=== PATIENT | female | born 1940 | race Hispanic/Latino ===

== ENCOUNTER 2018-02-22 09:33 | Emergency (ER) | payer MEDICARE ==
[2018-02-22 09:39] VITALS: BMI 26.3
[2018-02-22 10:03] VITALS: RESP 18; TEMP 98.4
--- NOTE | 2018-02-22 10:19 | ED PDOC ---
Arrival/HPI - General Chief Complaint: Trauma Time Seen by Provider: 02/22/18 09:41 Historian: Patient - History of Present Illness Narrative History of Present Illness (Text): 02/22/18 10:15 77-year-old female with a history of hypertension and multiple brain surgeries for meningiomas presents today with left upper lip laceration status post mechanical fall. Patient states [place] and tripped over the luggage falling forward landing on the luggage and hitting her face on the ground. Patient denies loss of consciousness. She denies dizziness or weakness. She denies chest pain or shortness of breath. She denies neck pain. She denies abdominal pain. Patient denies numbness weakness or tingling in the extremities. She denies any pain or limited range of motion to any of the extremities. Patient states her tetanus vaccine is up-to-date. Patient denies headache. Patient is only complaining of a burning sensation to the upper lip laceration. Patient states she fractured her right front tooth. No other complaints. Time/Duration: Prior to Arrival Symptom Onset: Sudden Past Medical History - Provider Review Nursing Documentation Reviewed: Yes - Travel History Have you recently traveled outside [place] w/in the past 3 mons?: No - Tetanus Immunization Tetanus Immunization: Up to Date - Cardiac Hx Hypertension: Yes - Psychiatric Hx Substance Use: No - Surgical History Other/Comment: brain sx for meningioma - Anesthesia Hx Anesthesia: Yes Hx Anesthesia Reactions: No Hx Malignant Hyperthermia: No Family/Social History - Physician Review Nursing Documentation Reviewed: Yes Family/Social History: Unknown Family HX Smoking Status: Never Smoked Hx Alcohol Use: No Hx Substance Use: No Allergies/Home Meds Allergies/Adverse Reactions: Allergies acebutolol [From Sectral] Allergy (Verified 02/22/18 09:40) ANAPHYLAXIS Sulfa (Sulfonamide Antibiotics) Allergy (Verified 02/22/18 09:40) ANAPHYLAXIS Review of Systems - Review of Systems Constitutional: absent: Fatigue, Fevers Eyes: Other (hx of exophthalmos to left eye. ). absent: Eye Pain ENT: absent: Sore Throat, Epistaxis, Sinus Congestion Respiratory: absent: SOB, Cough Cardiovascular: absent: Chest Pain, Palpitations Gastrointestinal: absent: Abdominal Pain, Constipation, Diarrhea, Nausea, Vomiting Musculoskeletal: absent: Arthralgias, Back Pain, Neck Pain Skin: Laceration Neurological: absent: Headache, Dizziness Psychiatric: absent: Anxiety, Depression Physical Exam Vital Signs Reviewed: Yes Vital Signs Temp Pulse Resp BP Pulse Ox 02/22/18 09:33 98.4 F 100 H 18 149/86 99 Temperature: Afebrile Blood Pressure: Normal Pulse: Tachycardic Respiratory Rate: Normal Appearance: Positive for: Well-Appearing, Non-Toxic, Comfortable Pain Distress: None Mental Status: Positive for: Alert and Oriented X 3 - Systems Exam Head: Present: Swelling, Laceration (there is a 1cm jagged horizontal laceration and a 0.5cm vertical laceration noted to the philtrum. 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 there is no periorbital/TMJ/ Maxilla tenderness. no step offs or crepitus) Conjunctiva: Present: Normal Ears: Present: Normal, NORMAL TM Mouth: Present: Moist Mucous Membranes, Normal Tounge, Other (there is a through and through T shaped laceration 2cm along the upper lip mucosa extending to the philtrum causing a 1cm laceration to the philtrum; there are 2 large dental fragments within the laceration. ). No: Drooling, Trismus, Normal Teeth (+ 7th and 8th partial dental fractures. ) Pharnyx: Present: Normal. No: ERYTHEMA, EXUDATE Nose (External): Present: Atraumatic Nose (Internal): Present: Normal Inspection. No: Septal Deviation, Septal Hematoma Neck: Present: Normal Range of Motion. No: MIDLINE TENDERNESS, Paraspinal Tenderness Respiratory/Chest: Present: Clear to Auscultation, Good Air Exchange. No: Respiratory Distress, Accessory Muscle Use Cardiovascular: Present: Regular Rate and Rhythm, Normal S1, S2. No: Murmurs Abdomen: Present: Other (no ecchymosis. ). No: Tenderness, Distention, Rebound, Guarding Back: Present: Normal Inspection, Other (no step offs/ no ecchymoisis; no erythema; no edema). No: CVA Tenderness, Midline Tenderness, Paraspinal Tenderness Upper Extremity: Present: Normal Inspection, Normal ROM, NORMAL PULSES, Neurovascularly Intact. No: Tenderness Lower Extremity: Present: Normal ROM Neurological: Present: GCS=15, Speech Normal, Motor Func Grossly Intact, Normal Sensory Function, Gait Normal Skin: Present: Warm, Dry, Normal Color Psychiatric: Present: Alert, Oriented x 3 Medical Decision Making ED Course and Treatment: 02/22/18 10:57 77yr female presents today with mechanical fall sustaining a through and through laceration to the mucosa of the upper lip extending to the philtrum. 2 small dental Foreign bodies removed from mucosa of upper lip. Head ct: FINDINGS: HEMORRHAGE: No intracranial hemorrhage. BRAIN: No mass effect or edema. No atrophy or chronic microvascular ischemic changes. VENTRICLES: Unremarkable. No hydrocephalus. CALVARIUM: There has been cranial reconstruction and reconstruction of the left orbit. Metal plates and cement are seen. There is proptosis of the left eye. PARANASAL SINUSES: Unremarkable as visualized. No significant inflammatory changes. MASTOID AIR CELLS: Unremarkable as visualized. No inflammatory changes. OTHER FINDINGS: None. IMPRESSION: No acute intracranial findings There has been cranial reconstruction and reconstruction of the left orbit. Metal plates and cement are seen. There is proptosis of the left eye. Maxillofacial ct: FINDINGS: NASAL BONES: Unremarkable. ORBITS: No acute fracture is appreciated bilaterally. The patient is status post extensive postoperative changes at the left orbit, temporal, frontal and sphenoid bones, status post multifocal osteotomy, with craniofacial reconstruction involving the lateral left orbit, sphenoid, frontal and temporal bones. No acute fracture is appreciable. Mild exophthalmos is resulted at the left globe/orbit. No right exophthalmos evident. PARANASAL SINUSES/ MASTOIDS: Clear. MAXILLA: Unremarkable. MANDIBLE/ TEMPOROMANDIBULAR JOINTS: Unremarkable. SKULL BASE: Unremarkable. TEMPORAL BONES: Middle ears and mastoid grossly unremarkable. OTHER FINDINGS: None. IMPRESSION: No acute fracture or destructive bony lesion appreciable at this time. Postoperative changes are identified including left craniofacial reconstruction as discussed above. tetanus is up to date. lacerations cleaned and irrigated well using high pressure irrigation; laceration repair; 11 sutures placed. pt started on augmentin PO. pt reassessment; pt c/o slight burning sensation to lip; requesting tylenol which she initially refused. pt present time patient continues to deny pain to any other body part. all results discussed in depth with the patient and family. The patient was advised to take Augmentin twice daily 10 days keep the wound clean and dry, apply bacitracin twice daily. Patient was advised to return immediately if signs of infection develop: High fevers, increasing pain increasing redness, increasing swelling, purulent discharge. Patient was advised to return in 5 days for suture removal. Patient verbalizes understanding of discharge instructions and need for immediate followup. all aspects of this case were discussed the attending of record. Impression: lip laceration, facial injury, mechanical fall, dental fracture tylenol every 4 hours as needed for pain. Augmentin 1 tablet twice daily x 10 days keep wound clean and dry. apply bacitracin twice daily. Follow up with the Dentist within the next 2 days. Follow up with the PMD within the next 2 days. Return in 5 days for suture removal. Return immediately if signs of infection develop; high fevers, increasing pain, redness, swelling, purulent discharge. Return immediately if any other concerning symptoms develop. - RAD Interpretation Radiology Orders: 02/22/18 10:13 HEAD W/O CONTRAST [CT] Stat MAXILLOFACIAL W/O CONTRAST [CT] Stat Procedure: Wound Repair - Procedure Procedure: Wound Repair: laceration, lip - Consent Obtained Consent obtained: Verbal - Performed by Performed by: Mid-level Provider - Indications Indication(s):: Laceration - Location Location:: Lip (lac#1:philtrum; 1.5cm jagged laceration lac #2: philtrum; 0.5cm linear lac #3: mucosa of upper lip T shaped 2cm lac #4; mucosa of upper lip 0.5cm linear) Shape:: Other (jagged) - Anesthetic Technique Anesthetic Technique: Local Local/Regional Anesthetic:: Lidocaine 1% (4cc) - Debris Debris:: Other (tooth particles (removed)) - Irrigated Irrigated with ml of normal saline: copious amounts of NS using high pressure irrigation - Complexity Complexity:: Simple (one layer) - Wound repair method Sutures:: # (Total 11 interrupted sutures placed: Lac#1; four 6.0 nylon, lac #2; two 6.0 nylon lac #3: four 6.0 vicryl lac #4: one 6.0 vicryl) - Complications Complications: none - Patient tolerated procedure Patient Tolerated Procedure:: Well Disposition/Present on Arrival - Present on Arrival Any Indicators Present on Arrival: No History of DVT/PE: No History of Uncontrolled Diabetes: No Urinary Catheter: No History of Decub. Ulcer: No History Surgical Site Infection Following: None - Disposition Have Diagnosis and Disposition been Completed?: Yes Diagnosis: Lip laceration, Injury of face, Broken teeth Disposition: HOME/ ROUTINE Disposition Time: 11:15 Patient Plan: Discharge Condition: GOOD Discharge Instructions (ExitCare): Laceration Repair With Stitches (DC), Fractured Tooth (DC) Additional Instructions: tylenol every 4 hours as needed for pain. Augmentin 1 tablet twice daily x 10 days keep wound clean and dry. apply bacitracin twice daily. Follow up with the Dentist within the next 2 days. Follow up with the PMD within the next 2 days. Return in 5 days for suture removal. Return immediately if signs of infection develop; high fevers, increasing pain, redness, swelling, purulent discharge. Return immediately if any other concerning symptoms develop. Prescriptions: Amoxicillin/Clavulanate [Augmentin 875 MG-125 MG] 1 tab PO BID #20 tab Referrals: Dharmesh Nieves DMD [Staff Provider] - Follow up with primary Janiya Orlando MD [Medical Doctor] - Follow up with primary [facility] [Outside] - Follow up with primary Forms: [employer] ([place]estinian)
[2018-02-22] MEDS ORDERED: Amoxicillin-Clav 875-125 mg Tab PO STA (11:15)
--- NOTE | 2018-02-22 11:23 | CT ---
Date of service: 02/22/2018 PROCEDURE: CT HEAD WITHOUT CONTRAST. HISTORY: Fall/ head injury. hx of multiple brain surgeries COMPARISON: None available. TECHNIQUE: Axial computed tomography images were obtained through the head/brain without intravenous contrast. Radiation dose: Total exam DLP = 842.71 mGy-cm. This CT exam was performed using one or more of the following dose reduction techniques: Automated exposure control, adjustment of the mA and/or kV according to patient size, and/or use of iterative reconstruction technique. FINDINGS: HEMORRHAGE: No intracranial hemorrhage. BRAIN: No mass effect or edema. No atrophy or chronic microvascular ischemic changes. VENTRICLES: Unremarkable. No hydrocephalus. CALVARIUM: There has been cranial reconstruction and reconstruction of the left orbit. Metal plates and cement are seen. There is proptosis of the left eye. PARANASAL SINUSES: Unremarkable as visualized. No significant inflammatory changes. MASTOID AIR CELLS: Unremarkable as visualized. No inflammatory changes. OTHER FINDINGS: None. IMPRESSION: No acute intracranial findings There has been cranial reconstruction and reconstruction of the left orbit. Metal plates and cement are seen. There is proptosis of the left eye.
--- NOTE | 2018-02-22 11:37 | CT ---
Date of service: 02/22/2018 PROCEDURE: CT MAXILLOFACIAL BONES WITHOUT CONTRAST HISTORY: fall, facial injury/ lip laceration COMPARISON: None available. TECHNIQUE: Contiguous axial CT images of the maxillofacial bones were obtained. Coronal and sagittal reformats were generated. Radiation dose: Total exam DLP = 726.1 mGy-cm. This CT exam was performed using one or more of the following dose reduction techniques: Automated exposure control, adjustment of the mA and/or kV according to patient size, and/or use of iterative reconstruction technique. FINDINGS: NASAL BONES: Unremarkable. ORBITS: No acute fracture is appreciated bilaterally. The patient is status post extensive postoperative changes at the left orbit, temporal, frontal and sphenoid bones, status post multifocal osteotomy, with craniofacial reconstruction involving the lateral left orbit, sphenoid, frontal and temporal bones. No acute fracture is appreciable. Mild exophthalmos is resulted at the left globe/orbit. No right exophthalmos evident. PARANASAL SINUSES/ MASTOIDS: Clear. MAXILLA: Unremarkable. MANDIBLE/ TEMPOROMANDIBULAR JOINTS: Unremarkable. SKULL BASE: Unremarkable. TEMPORAL BONES: Middle ears and mastoid grossly unremarkable. OTHER FINDINGS: None. IMPRESSION: No acute fracture or destructive bony lesion appreciable at this time. Postoperative changes are identified including left craniofacial reconstruction as discussed above.
[2018-02-22] MEDS ORDERED: Lidocaine 1% 5ml Abboject ONE (11:44)
[2018-02-22] MEDS ORDERED: Bacitracin 500 Units/gm Oint Foilpak UD ONE (14:55)
[2018-02-22 17:42] VITALS: BP 142/74; PULSE 78; O2SAT 98
== END 2018-02-22 14:44 | disposition home or self-care (01) ==
LOC: ED 09:33
DX: S01.511A Laceration without foreign body of lip, initial encounter (principal); S02.5XXA Fracture of tooth (traumatic), initial encounter for closed fracture; W01.0XXA Fall on same level from slipping, tripping and stumbling without subsequent striking against object, initial encounter